=== PATIENT | female | born 1990 | race Caucasian/White ===

== ENCOUNTER 2017-07-13 11:37 | Inpatient (IN) | payer OTHER ==
[2017-07-13] MEDS: DEXTROSE 50% 50 ML SYRINGE IV ×2 (15:24→17:46)
[2017-07-13] MEDS: DEXTROSE 5%-0.9% NACL 1,000 ML IV ×3 (15:25→21:01)
[2017-07-13 15:32] LABS: ADD MAN DIFF? NO
[2017-07-13 15:36] LABS: BASOPHILS % 0.3 % (0.0-2.0); EOSINOPHILS % 0.2 % (0.0-7.0); HEMATOCRIT 32.3 % (37.0-47.0); HEMOGLOBIN 10.5 g/dl (12.0-16.0); LYMPHOCYTES # 1.4 10^3/ul (0.8-2.9); LYMPHOCYTES % 15.5 % (15.0-51.0); MEAN CORPUSCULAR HEMOGLOBIN 29.1 pg (29.0-33.0); MEAN CORPUSCULAR HGB CONC 32.5 g/dl (32.0-37.0); MEAN CORPUSCULAR VOLUME 89.5 fl (82.0-101.0); MEAN PLATELET VOLUME 8.3 fl (7.4-10.4); MONOCYTE # 0.4 10^3/ul (0.3-0.9); MONOCYTES % 4.3 % (0.0-11.0); NEUTROPHIL # 7.1 10^3/ul (1.6-7.5); NEUTROPHILS % 79.5 % (39.0-77.0); PLATELET COUNT 317 10^3/UL (140-415); RED BLOOD COUNT 3.61 10^6/ul (4.20-5.40); RED CELL DISTRIBUTION WIDTH 12.5 % (11.5-14.5)
[2017-07-13 15:36] LABS: WHITE BLOOD COUNT 8.9 10^3/ul (4.8-10.8)
[2017-07-13 15:49] LABS: ANION GAP 18 (8-16); BLOOD UREA NITROGEN 9 mg/dl (7-20); CARBON DIOXIDE 23 mmol/L (21-31); CHLORIDE 106 mmol/L (97-110); CREATININE 0.63 mg/dl (0.44-1.00); POTASSIUM 3.8 mmol/L (3.5-5.1); SODIUM 143 mmol/L (135-144)
[2017-07-13 16:08] LABS: GLUCOSE 36 mg/dl (70-220)
[2017-07-13] MEDS ORDERED: ACETAMINOPHEN 325 MG TAB PO (17:00)
[2017-07-13] MEDS ORDERED: ONDANSETRON 4 MG INJ IV ×2 (17:00)
[2017-07-13 17:49] LABS: MAGNESIUM 2.4 mg/dl (1.7-2.5)
[2017-07-13 17:49] LABS: PHOSPHORUS 3.7 mg/dl (2.5-4.9)
[2017-07-13] MEDS: OCTREOTIDE 100 MCG INJ SC (17:50)
[2017-07-13] MEDS: FAMOTIDINE 20 MG TAB PO (20:13)
[2017-07-13] MEDS: traZODone 50 MG TAB PO (20:23)
[2017-07-14] MEDS: DEXTROSE 5%-0.9% NACL 1,000 ML IV ×3 (00:12→10:00)
[2017-07-14] MEDS: DEXTROSE 50% 50 ML SYRINGE IV ×8 (00:12→12:58)
[2017-07-14 05:18] LABS: WHITE BLOOD COUNT 4.9 10^3/ul (4.8-10.8)
[2017-07-14 05:18] LABS: ADD MAN DIFF? NO; BASOPHILS % 0.4 % (0.0-2.0); EOSINOPHILS # 0.1 10^3/ul (0.0-0.5); HEMOGLOBIN 8.7 g/dl (12.0-16.0); LYMPHOCYTES # 1.7 10^3/ul (0.8-2.9); LYMPHOCYTES % 34.6 % (15.0-51.0); MEAN CORPUSCULAR HEMOGLOBIN 29.3 pg (29.0-33.0); MEAN CORPUSCULAR HGB CONC 32.2 g/dl (32.0-37.0); MEAN CORPUSCULAR VOLUME 90.9 fl (82.0-101.0); MEAN PLATELET VOLUME 8.5 fl (7.4-10.4); MONOCYTE # 0.4 10^3/ul (0.3-0.9); MONOCYTES % 8.6 % (0.0-11.0); NEUTROPHIL # 2.7 10^3/ul (1.6-7.5); NEUTROPHILS % 54.2 % (39.0-77.0); NUCLEATED RED BLOOD CELLS% 0.8 /100WBC (0.0-0.0); PLATELET COUNT 208 10^3/UL (140-415); RED BLOOD COUNT 2.97 10^6/ul (4.20-5.40); RED CELL DISTRIBUTION WIDTH 12.7 % (11.5-14.5)
[2017-07-14 06:21] LABS: PHOSPHORUS 3.7 mg/dl (2.5-4.9)
[2017-07-14 06:21] LABS: MAGNESIUM 1.9 mg/dl (1.7-2.5)
[2017-07-14 06:22] LABS: ALANINE AMINOTRANSFERASE 40 IU/L (13-69); ALBUMIN 3.2 g/dl (3.3-4.9); ALBUMIN/GLOBULIN RATIO 1.33; ALKALINE PHOSPHATASE 47 IU/L (42-121); ANION GAP 9 (8-16); ASPARTATE AMINO TRANSFERASE 20 IU/L (15-46); BILIRUBIN,INDIRECT 0.2 mg/dl (0-1.1); BILIRUBIN,TOTAL 0.2 mg/dl (0.2-1.3); BLOOD UREA NITROGEN 4 mg/dl (7-20); CALCIUM 8.2 mg/dl (8.4-10.2); CARBON DIOXIDE 25 mmol/L (21-31); CHLORIDE 109 mmol/L (97-110); GLUCOSE 137 mg/dl (70-220); POTASSIUM 3.2 mmol/L (3.5-5.1); SODIUM 140 mmol/L (135-144); TOTAL PROTEIN 5.6 g/dl (6.1-8.1)
[2017-07-14] MEDS ORDERED: OCTREOTIDE 100 MCG INJ SC (09:00)
[2017-07-14] MEDS: POTASSIUM CHLORIDE (SR) 20 MEQ TAB PO (09:20)
[2017-07-14] MEDS: NIACIN (SR) 250 MG CAP PO (09:20)
[2017-07-14] MEDS: HYDROCORTISONE 250 MG INJ IV (09:20)
[2017-07-14] MEDS: FAMOTIDINE 20 MG TAB PO (09:21)
[2017-07-14] MEDS: ACETAMINOPHEN 650MG/20.3ML CUP PO (10:01)
[2017-07-14] MEDS: MAGNESIUM SULFATE 1 GM/D5W 100 ML IVPB (10:30)
[2017-07-14] MEDS: OCTREOTIDE 100 MCG INJ SC (14:08)
[2017-07-14] MEDS: [UNRECOGNIZED DRUG - OTHER] IV (16:34)
[2017-07-14] MEDS: D10W IV (16:34)
== END 2017-07-14 19:30 | disposition short-term general hospital (02) | DRG 645 ==
LOC: E/R 11:37 → ICU 16:48
PROVIDERS: Internal Medicine
DX: E16.1 Other hypoglycemia (principal)
CPT/HCPCS: 36415; 80048; 80053; 82962; 83735; 84100; 85025; 96372; 96374; 96376; 99291-25

== ENCOUNTER 2017-10-19 21:12 | Inpatient (IN) | payer OTHER ==
[2017-10-19] MEDS: DEXTROSE 50% 50 ML SYRINGE IV (22:09)
[2017-10-19] MEDS: ACCU-CHEK XX ×2 (22:30→23:30)
[2017-10-19 22:39] LABS: ADD MAN DIFF? NO
[2017-10-19 22:43] LABS: WHITE BLOOD COUNT 7.9 10^3/ul (4.8-10.8)
[2017-10-19 22:43] LABS: BASOPHILS % 0.3 % (0.0-2.0); EOSINOPHILS # 0.1 10^3/ul (0.0-0.5); EOSINOPHILS % 0.6 % (0.0-7.0); HEMOGLOBIN 10.1 g/dl (12.0-16.0); LYMPHOCYTES # 2.4 10^3/ul (0.8-2.9); LYMPHOCYTES % 30.4 % (15.0-51.0); MEAN CORPUSCULAR HEMOGLOBIN 26.3 pg (29.0-33.0); MEAN CORPUSCULAR HGB CONC 31.6 g/dl (32.0-37.0); MEAN CORPUSCULAR VOLUME 83.3 fl (82.0-101.0); MEAN PLATELET VOLUME 9.2 fl (7.4-10.4); MONOCYTE # 0.7 10^3/ul (0.3-0.9); MONOCYTES % 8.5 % (0.0-11.0); NEUTROPHIL # 4.7 10^3/ul (1.6-7.5); NEUTROPHILS % 59.8 % (39.0-77.0); PLATELET COUNT 279 10^3/UL (140-415); RED BLOOD COUNT 3.84 10^6/ul (4.20-5.40); RED CELL DISTRIBUTION WIDTH 15.6 % (11.5-14.5)
[2017-10-19 22:57] LABS: URINE BLOOD (Dip) POC 2+ (NEGATIVE); URINE KETONES (Dip) POC Negative (NEGATIVE); URINE LEUKOCYTE EST (Dip) POC Negative (NEGATIVE); URINE NITRITE (Dip) POC Negative (NEGATIVE); URINE TOTAL PROTEIN POC Negative (NEGATIVE)
[2017-10-19 22:59] LABS: ALANINE AMINOTRANSFERASE 185 IU/L (13-69); ALBUMIN 4.7 g/dl (3.3-4.9); ALBUMIN/GLOBULIN RATIO 1.34; ALKALINE PHOSPHATASE 179 IU/L (42-121); ANION GAP 16 (8-16); ASPARTATE AMINO TRANSFERASE 35 IU/L (15-46); BILIRUBIN,INDIRECT 0.1 mg/dl (0-1.1); BILIRUBIN,TOTAL 0.1 mg/dl (0.2-1.3); BLOOD UREA NITROGEN 9 mg/dl (7-20); CALCIUM 8.9 mg/dl (8.4-10.2); CARBON DIOXIDE 24 mmol/L (21-31); CHLORIDE 104 mmol/L (97-110); CREATININE 0.71 mg/dl (0.44-1.00); POTASSIUM 3.1 mmol/L (3.5-5.1); SODIUM 141 mmol/L (135-144); TOTAL PROTEIN 8.2 g/dl (6.1-8.1)
[2017-10-19 23:02] LABS: INR 0.88; PT RATIO 0.9
[2017-10-19 23:03] LABS: PARTIAL THROMBOPLASTIN TIME 31.8 Sec (25.0-35.0)
[2017-10-19 23:11] LABS: GLUCOSE 21 mg/dl (70-220)
[2017-10-19] MEDS: POTASSIUM CHLORIDE (SR) 20 MEQ TAB PO (23:48)
[2017-10-20] MEDS: ACCU-CHEK XX ×24 (00:30→23:30)
[2017-10-20] MEDS: DEXTROSE 10% 1,000 ML IV ×6 (01:38→19:00)
[2017-10-20] MEDS: DEXTROSE 50% 50 ML SYRINGE IV ×5 (02:07→14:54)
[2017-10-20] MEDS: OCTREOTIDE 50 MCG INJ SC (04:12)
[2017-10-20] MEDS: ONDANSETRON 4 MG INJ IV ×2 (04:12→14:26)
[2017-10-20] MEDS ORDERED: OCTREOTIDE ACETATE IJ (09:00)
[2017-10-20 09:01] LABS: ALANINE AMINOTRANSFERASE 159 IU/L (13-69); ALBUMIN 3.7 g/dl (3.3-4.9); ALBUMIN/GLOBULIN RATIO 1.32; ALKALINE PHOSPHATASE 162 IU/L (42-121); ANION GAP 12 (8-16); ASPARTATE AMINO TRANSFERASE 25 IU/L (15-46); BILIRUBIN,INDIRECT 0.3 mg/dl (0-1.1); BILIRUBIN,TOTAL 0.3 mg/dl (0.2-1.3); BLOOD UREA NITROGEN 4 mg/dl (7-20); CALCIUM 8.8 mg/dl (8.4-10.2); CARBON DIOXIDE 23 mmol/L (21-31); CHLORIDE 109 mmol/L (97-110); CREATININE 0.53 mg/dl (0.44-1.00); GLUCOSE 216 mg/dl (70-220); POTASSIUM 4.4 mmol/L (3.5-5.1); SODIUM 140 mmol/L (135-144); TOTAL PROTEIN 6.5 g/dl (6.1-8.1)
[2017-10-20] MEDS ORDERED: GLUCAGON 1 MG INJ (11:27)
[2017-10-20] MEDS: ACETAMINOPHEN 325 MG TAB PO (13:24)
[2017-10-20] MEDS: NIACIN (SR) 250 MG CAP PO ×2 (13:42→14:00)
[2017-10-20] MEDS: PRENATAL VITAMIN PO (13:42)
[2017-10-20] MEDS ORDERED: DEXTROSE 50% 50 ML SYRINGE (14:10)
[2017-10-20] MEDS: OCTREOTIDE 100 MCG INJ SC (14:24)
[2017-10-20] MEDS ORDERED: GLUCAGON 1 MG INJ IM (14:30)
[2017-10-20] MEDS ORDERED: GLUCOSE GEL 15 GRAM TUBE BUCCAL (14:30)
[2017-10-20] MEDS ORDERED: GLUCOSE GEL 15 GRAM TUBE PO ×2 (14:30)
[2017-10-21] MEDS: DEXTROSE 10% 1,000 ML IV ×5 (00:07→22:09)
[2017-10-21] MEDS: NIACIN (SR) 250 MG CAP PO ×4 (00:13→21:45)
[2017-10-21] MEDS: OCTREOTIDE 100 MCG INJ SC ×4 (00:14→21:45)
[2017-10-21] MEDS: ACCU-CHEK XX ×24 (00:30→23:45)
[2017-10-21] MEDS: ACETAMINOPHEN 325 MG TAB PO ×3 (03:58→21:45)
[2017-10-21] MEDS: ONDANSETRON 4 MG INJ IV ×3 (06:56→21:44)
[2017-10-21] MEDS: METHYLPREDNISOLONE 40 MG INJ IV (08:47)
[2017-10-21] MEDS: PRENATAL VITAMIN PO (10:16)
[2017-10-21] MEDS: PYRIDOXINE 50 MG TAB PO ×2 (14:11→21:45)
[2017-10-21] MEDS: DIPHENHYDRAMINE 50 MG CAP PO (21:45)
[2017-10-22] MEDS: ACCU-CHEK XX ×24 (01:19→23:30)
[2017-10-22] MEDS: DEXTROSE 10% 1,000 ML IV ×3 (03:16→18:44)
[2017-10-22] MEDS: NIACIN (SR) 250 MG CAP PO ×3 (05:36→21:51)
[2017-10-22] MEDS: PYRIDOXINE 50 MG TAB PO ×3 (05:36→21:52)
[2017-10-22] MEDS: OCTREOTIDE 100 MCG INJ SC ×4 (05:36→22:31)
[2017-10-22] MEDS: ONDANSETRON 4 MG INJ IV ×2 (05:39→13:11)
[2017-10-22 07:20] LABS: ALANINE AMINOTRANSFERASE 113 IU/L (13-69); ALBUMIN 4.2 g/dl (3.3-4.9); ALBUMIN/GLOBULIN RATIO 1.31; ALKALINE PHOSPHATASE 147 IU/L (42-121); ANION GAP 16 (8-16); ASPARTATE AMINO TRANSFERASE 24 IU/L (15-46); BILIRUBIN,INDIRECT 0.3 mg/dl (0-1.1); BILIRUBIN,TOTAL 0.3 mg/dl (0.2-1.3); BLOOD UREA NITROGEN 4 mg/dl (7-20); CARBON DIOXIDE 23 mmol/L (21-31); CHLORIDE 105 mmol/L (97-110); CREATININE 0.58 mg/dl (0.44-1.00); GLUCOSE 130 mg/dl (70-220); POTASSIUM 3.2 mmol/L (3.5-5.1); SODIUM 141 mmol/L (135-144); TOTAL PROTEIN 7.4 g/dl (6.1-8.1)
[2017-10-22] MEDS: PRENATAL VITAMIN PO (08:34)
[2017-10-22] MEDS: POTASSIUM CHLORIDE (SR) 20 MEQ TAB PO (10:11)
[2017-10-22] MEDS: predniSONE 20 MG TAB PO (10:11)
[2017-10-22] MEDS: DEXTROSE 50% 50 ML SYRINGE IV ×4 (11:37→22:28)
[2017-10-22] MEDS: DIPHENHYDRAMINE 50 MG CAP PO (21:52)
[2017-10-23] MEDS: ACCU-CHEK XX ×24 (00:50→23:49)
[2017-10-23] MEDS: DEXTROSE 10% 1,000 ML IV ×3 (02:31→21:53)
[2017-10-23] MEDS: NIACIN (SR) 250 MG CAP PO ×3 (05:42→23:51)
[2017-10-23] MEDS: OCTREOTIDE 100 MCG INJ SC ×3 (05:42→18:32)
[2017-10-23] MEDS: PYRIDOXINE 50 MG TAB PO ×3 (05:42→22:00)
[2017-10-23 06:17] LABS: ALANINE AMINOTRANSFERASE 143 IU/L (13-69); ALBUMIN 3.8 g/dl (3.3-4.9); ALBUMIN/GLOBULIN RATIO 1.35; ALKALINE PHOSPHATASE 135 IU/L (42-121); ANION GAP 10 (8-16); ASPARTATE AMINO TRANSFERASE 45 IU/L (15-46); BILIRUBIN,INDIRECT 0.4 mg/dl (0-1.1); BILIRUBIN,TOTAL 0.4 mg/dl (0.2-1.3); BLOOD UREA NITROGEN 5 mg/dl (7-20); CALCIUM 9.3 mg/dl (8.4-10.2); CARBON DIOXIDE 27 mmol/L (21-31); CHLORIDE 106 mmol/L (97-110); CREATININE 0.64 mg/dl (0.44-1.00); GLUCOSE 133 mg/dl (70-220); POTASSIUM 4.1 mmol/L (3.5-5.1); SODIUM 139 mmol/L (135-144); TOTAL PROTEIN 6.6 g/dl (6.1-8.1)
[2017-10-23] MEDS: PRENATAL VITAMIN PO (08:43)
[2017-10-23] MEDS: ONDANSETRON 4 MG INJ IV ×2 (11:45→18:32)
[2017-10-23] MEDS: predniSONE 5 MG TAB PO ×2 (14:36→23:51)
[2017-10-23 15:18] LABS: C-PEPTIDE 2.82 ng/mL (0.80-3.85)
[2017-10-23] MEDS: DIPHENHYDRAMINE 50 MG CAP PO (21:34)
[2017-10-24] MEDS: ACCU-CHEK XX ×24 (01:07→23:56)
[2017-10-24] MEDS: OCTREOTIDE 100 MCG INJ SC ×3 (01:07→12:00)
[2017-10-24] MEDS: ONDANSETRON 4 MG INJ IV (01:21)
[2017-10-24] MEDS: DEXTROSE 10% 1,000 ML IV ×3 (02:25→17:40)
[2017-10-24 05:47] LABS: MAGNESIUM 1.8 mg/dl (1.7-2.5)
[2017-10-24 05:50] LABS: ALANINE AMINOTRANSFERASE 128 IU/L (13-69); ALBUMIN 3.9 g/dl (3.3-4.9); ALBUMIN/GLOBULIN RATIO 1.25; ALKALINE PHOSPHATASE 132 IU/L (42-121); ANION GAP 14 (8-16); ASPARTATE AMINO TRANSFERASE 36 IU/L (15-46); BILIRUBIN,INDIRECT 0.5 mg/dl (0-1.1); BILIRUBIN,TOTAL 0.5 mg/dl (0.2-1.3); BLOOD UREA NITROGEN 6 mg/dl (7-20); CALCIUM 8.8 mg/dl (8.4-10.2); CARBON DIOXIDE 24 mmol/L (21-31); CHLORIDE 103 mmol/L (97-110); GLUCOSE 167 mg/dl (70-220); POTASSIUM 3.6 mmol/L (3.5-5.1); SODIUM 137 mmol/L (135-144)
[2017-10-24] MEDS: predniSONE 5 MG TAB PO ×3 (05:53→21:45)
[2017-10-24] MEDS: NIACIN (SR) 250 MG CAP PO ×3 (05:53→21:45)
[2017-10-24] MEDS: PYRIDOXINE 50 MG TAB PO ×3 (05:53→21:45)
[2017-10-24] MEDS: PRENATAL VITAMIN PO (08:24)
[2017-10-24] MEDS: ACETAMINOPHEN 325 MG TAB PO ×2 (14:57→21:52)
[2017-10-24] MEDS: ACARBOSE 50 MG TAB PO (16:40)
[2017-10-24] MEDS: DIPHENHYDRAMINE 50 MG CAP PO (21:45)
[2017-10-24] MEDS: DEXTROSE 50% 50 ML SYRINGE IV (22:50)
[2017-10-25] MEDS: ACCU-CHEK XX ×24 (00:57→23:50)
[2017-10-25 05:48] LABS: PHOSPHORUS 4.5 mg/dl (2.5-4.9)
[2017-10-25 05:53] LABS: ANION GAP 17 (8-16); BLOOD UREA NITROGEN 7 mg/dl (7-20); CARBON DIOXIDE 22 mmol/L (21-31); CHLORIDE 103 mmol/L (97-110); CREATININE 0.63 mg/dl (0.44-1.00); GLUCOSE 80 mg/dl (70-220); POTASSIUM 3.7 mmol/L (3.5-5.1); SODIUM 138 mmol/L (135-144)
[2017-10-25] MEDS: predniSONE 5 MG TAB PO ×3 (06:47→21:37)
[2017-10-25] MEDS: NIACIN (SR) 250 MG CAP PO ×3 (06:47→21:37)
[2017-10-25] MEDS: PYRIDOXINE 50 MG TAB PO ×3 (06:47→21:37)
[2017-10-25] MEDS: ACARBOSE 50 MG TAB PO ×3 (07:53→18:20)
[2017-10-25] MEDS: PRENATAL VITAMIN PO (08:16)
[2017-10-25] MEDS: DEXTROSE 10% 1,000 ML IV ×2 (08:34→13:53)
[2017-10-25] MEDS: DEXTROSE 50% 50 ML SYRINGE IV (14:38)
[2017-10-25] MEDS: DIPHENHYDRAMINE 50 MG CAP PO (21:37)
[2017-10-25] MEDS: OCTREOTIDE 100 MCG INJ SC (21:40)
[2017-10-26] MEDS: ACCU-CHEK XX ×16 (00:46→15:00)
[2017-10-26] MEDS: DEXTROSE 10% 1,000 ML IV (01:09)
[2017-10-26] MEDS: SOD CHLORIDE 0.9% 500 ML IV (03:27)
[2017-10-26] MEDS: OCTREOTIDE 100 MCG INJ SC ×3 (05:00→15:28)
[2017-10-26] MEDS: NIACIN (SR) 250 MG CAP PO ×2 (05:32→14:44)
[2017-10-26] MEDS: predniSONE 5 MG TAB PO ×2 (05:32→14:22)
[2017-10-26] MEDS: PYRIDOXINE 50 MG TAB PO ×2 (05:32→14:23)
[2017-10-26 05:37] LABS: ANION GAP 16 (8-16); BLOOD UREA NITROGEN 12 mg/dl (7-20); CALCIUM 8.2 mg/dl (8.4-10.2); CARBON DIOXIDE 21 mmol/L (21-31); CHLORIDE 103 mmol/L (97-110); CREATININE 0.76 mg/dl (0.44-1.00); GLUCOSE 104 mg/dl (70-220); POTASSIUM 3.4 mmol/L (3.5-5.1); SODIUM 137 mmol/L (135-144)
[2017-10-26 05:38] LABS: MAGNESIUM 1.9 mg/dl (1.7-2.5)
[2017-10-26] MEDS: ACARBOSE 50 MG TAB PO ×2 (06:42→11:18)
[2017-10-26] MEDS: PRENATAL VITAMIN PO (09:44)
[2017-10-26] MEDS: POTASSIUM CHLORIDE (SR) 20 MEQ TAB PO (09:44)
[2017-10-26] MEDS: ONDANSETRON 4 MG INJ IV (09:55)
[2017-10-26] MEDS ORDERED: POTASSIUM CHLORIDE (SR) 20 MEQ TAB PO (11:14)
== END 2017-10-26 15:32 | disposition home or self-care (01) | DRG 781 ==
LOC: ICU 10-20 02:05 → E/R 21:12
PROVIDERS: Hospitalist
DX: O99.281 Endocrine, nutritional and metabolic diseases complicating pregnancy, first trimester (principal); E16.1 Other hypoglycemia; E87.6 Hypokalemia; Z3A.01 Less than 8 weeks gestation of pregnancy; D37.2 Neoplasm of uncertain behavior of small intestine
CPT/HCPCS: 36415; 76801; 76817; 80048; 80053; 81003; 81025; 82962; 83525; 83735; 84100; 84681; 85025; 85610; 85730; 87081; 93005; 96372; 96374; 96375; 96376; 99291-25

== ENCOUNTER 2017-12-07 20:27 | Emergency (ER) | payer OTHER ==
[2017-12-07] MEDS ORDERED: DEXTROSE 50% 50 ML SYRINGE (21:38)
[2017-12-07] MEDS: DEXTROSE 50% 50 ML SYRINGE IV (21:53)
[2017-12-07] MEDS: ACCU-CHEK XX (22:34)
[2017-12-07] MEDS: DEXTROSE 10% 1,000 ML IV (22:35)
[2017-12-07 22:38] LABS: ADD MAN DIFF? NO
[2017-12-07 22:40] LABS: BASOPHILS % 0.2 % (0.0-2.0); EOSINOPHILS # 0.1 10^3/ul (0.0-0.5); EOSINOPHILS % 0.9 % (0.0-7.0); HEMATOCRIT 36.5 % (37.0-47.0); LYMPHOCYTES # 2.3 10^3/ul (0.8-2.9); LYMPHOCYTES % 21.3 % (15.0-51.0); MEAN CORPUSCULAR HEMOGLOBIN 29.1 pg (29.0-33.0); MEAN CORPUSCULAR HGB CONC 32.9 g/dl (32.0-37.0); MEAN CORPUSCULAR VOLUME 88.4 fl (82.0-101.0); MEAN PLATELET VOLUME 9.7 fl (7.4-10.4); MONOCYTE # 0.8 10^3/ul (0.3-0.9); MONOCYTES % 7.5 % (0.0-11.0); NEUTROPHIL # 7.6 10^3/ul (1.6-7.5); NEUTROPHILS % 69.7 % (39.0-77.0); PLATELET COUNT 195 10^3/UL (140-415); RED BLOOD COUNT 4.13 10^6/ul (4.20-5.40); RED CELL DISTRIBUTION WIDTH 17.3 % (11.5-14.5); URINE BLOOD (Dip) POC Negative (NEGATIVE); URINE GLUCOSE (Dip) POC Negative (NEGATIVE); URINE KETONES (Dip) POC Negative (NEGATIVE); URINE LEUKOCYTE EST (Dip) POC Trace (NEGATIVE); URINE NITRITE (Dip) POC Negative (NEGATIVE); URINE TOTAL PROTEIN POC Negative (NEGATIVE)
[2017-12-07 22:40] LABS: WHITE BLOOD COUNT 10.9 10^3/ul (4.8-10.8)
[2017-12-07 22:46] LABS: ANION GAP 15 (8-16); BLOOD UREA NITROGEN 9 mg/dl (7-20); CALCIUM 9.1 mg/dl (8.4-10.2); CARBON DIOXIDE 20 mmol/L (21-31); CHLORIDE 108 mmol/L (97-110); MAGNESIUM 1.9 mg/dl (1.7-2.5); SODIUM 140 mmol/L (135-144)
[2017-12-07 22:51] LABS: GLUCOSE 35 mg/dl (70-220); POTASSIUM 2.9 mmol/L (3.5-5.1)
[2017-12-08] MEDS: ACCU-CHEK XX ×10 (00:17→08:14)
[2017-12-08] MEDS: POTASSIUM CHLORIDE (SR) 20 MEQ TAB PO (00:17)
[2017-12-08] MEDS: DEXTROSE 50% 50 ML SYRINGE IV ×4 (02:27→07:03)
== END 2017-12-08 08:40 | disposition short-term general hospital (02) ==
LOC: E/R 12-08 08:40
DX: O99.810 Abnormal glucose complicating pregnancy (principal); O99.281 Endocrine, nutritional and metabolic diseases complicating pregnancy, first trimester; E87.6 Hypokalemia; E16.2 Hypoglycemia, unspecified; Z3A.12 12 weeks gestation of pregnancy
CPT/HCPCS: 76801; 80048; 81003; 81025; 82962; 83735; 85025; 96374; 96376; 99291-25

== ENCOUNTER 2018-08-28 17:04 | Inpatient (IN) | payer OTHER ==
[2018-08-28 18:10] LABS: ADD MAN DIFF? NO
[2018-08-28 18:13] LABS: WHITE BLOOD COUNT 8.9 10^3/ul (4.8-10.8)
[2018-08-28 18:13] LABS: BASOPHILS % 0.2 % (0.0-2.0); EOSINOPHILS % 0.1 % (0.0-7.0); HEMATOCRIT 35.1 % (37.0-47.0); HEMOGLOBIN 11.8 g/dl (12.0-16.0); LYMPHOCYTES # 1.6 10^3/ul (0.8-2.9); MEAN CORPUSCULAR HGB CONC 33.6 g/dl (32.0-37.0); MEAN CORPUSCULAR VOLUME 92.1 fl (82.0-101.0); MONOCYTE # 0.6 10^3/ul (0.3-0.9); MONOCYTES % 6.3 % (0.0-11.0); NEUTROPHIL # 6.7 10^3/ul (1.6-7.5); NEUTROPHILS % 75.2 % (39.0-77.0); PLATELET COUNT 209 10^3/UL (140-415); RED BLOOD COUNT 3.81 10^6/ul (4.20-5.40); RED CELL DISTRIBUTION WIDTH 11.9 % (11.5-14.5)
[2018-08-28 18:30] LABS: ALANINE AMINOTRANSFERASE 38 IU/L (13-69); ALBUMIN 4.7 g/dl (3.3-4.9); ALBUMIN/GLOBULIN RATIO 1.56; ALKALINE PHOSPHATASE 69 IU/L (42-121); ANION GAP 13 (5-13); ASPARTATE AMINO TRANSFERASE 29 IU/L (15-46); BILIRUBIN,INDIRECT 0.7 mg/dl (0-1.1); BILIRUBIN,TOTAL 0.7 mg/dl (0.2-1.3); BLOOD UREA NITROGEN 6 mg/dl (7-20); CALCIUM 9.3 mg/dl (8.4-10.2); CARBON DIOXIDE 23 mmol/L (21-31); CHLORIDE 107 mmol/L (97-110); CREATININE 0.58 mg/dl (0.44-1.00); Estimated GFR > 60 mL/min (>60); LIPASE 213 U/L (23-300); POTASSIUM 3.6 mmol/L (3.5-5.1); SODIUM 143 mmol/L (135-144); TOTAL PROTEIN 7.7 g/dl (6.1-8.1)
[2018-08-28] MEDS: DEXTROSE 50% 50 ML SYRINGE IV ×3 (18:30→22:45)
[2018-08-28 18:36] LABS: GLUCOSE 44 mg/dl (70-220)
[2018-08-28 19:02] LABS: URINE BLOOD (Dip) POC Trace-intact (NEGATIVE); URINE GLUCOSE (Dip) POC Negative (NEGATIVE); URINE KETONES (Dip) POC Negative (NEGATIVE); URINE LEUKOCYTE EST (Dip) POC Negative (NEGATIVE); URINE NITRITE (Dip) POC Negative (NEGATIVE); URINE TOTAL PROTEIN POC Negative (NEGATIVE)
[2018-08-28] MEDS: DEXTROSE 10% 1,000 ML IV (20:12)
[2018-08-28] MEDS ORDERED: NACL 0.9% 3 ML SYG IV (21:30)
[2018-08-28] MEDS ORDERED: DOCUSATE SODIUM 100 MG CAP PO (21:30)
[2018-08-28] MEDS: POTASSIUM CHLORIDE 20 MEQ in DEXTROSE 10%/0.2% NACL 1,000 ML IV (22:31)
[2018-08-28] MEDS ORDERED: OCTREOTIDE 50 MCG INJ SC (22:40)
[2018-08-28] MEDS: FAMOTIDINE 20 MG TAB PO (23:15)
[2018-08-28] MEDS: OCTREOTIDE 100 MCG INJ SC (23:30)
[2018-08-29] MEDS: ACETAMINOPHEN 325 MG TAB PO ×2 (00:32→17:53)
[2018-08-29] MEDS: DEXTROSE 50% 50 ML SYRINGE IV ×15 (00:34→18:52)
[2018-08-29] MEDS: ACCU-CHEK XX ×23 (01:07→23:00)
[2018-08-29] MEDS: POTASSIUM CHLORIDE 20 MEQ in DEXTROSE 10%/0.2% NACL 1,000 ML IV ×4 (04:44→23:30)
[2018-08-29 05:32] LABS: ADD MAN DIFF? NO
[2018-08-29] MEDS: OCTREOTIDE 100 MCG INJ SC ×5 (05:40→23:31)
[2018-08-29 05:41] LABS: WHITE BLOOD COUNT 4.7 10^3/ul (4.8-10.8)
[2018-08-29 05:41] LABS: BASOPHILS % 0.2 % (0.0-2.0); EOSINOPHILS # 0.1 10^3/ul (0.0-0.5); EOSINOPHILS % 1.3 % (0.0-7.0); HEMOGLOBIN 10.6 g/dl (12.0-16.0); LYMPHOCYTES # 1.9 10^3/ul (0.8-2.9); LYMPHOCYTES % 40.9 % (15.0-51.0); MEAN CORPUSCULAR HEMOGLOBIN 30.6 pg (29.0-33.0); MEAN CORPUSCULAR HGB CONC 33.1 g/dl (32.0-37.0); MEAN CORPUSCULAR VOLUME 92.5 fl (82.0-101.0); MEAN PLATELET VOLUME 9.2 fl (7.4-10.4); MONOCYTE # 0.4 10^3/ul (0.3-0.9); NEUTROPHIL # 2.3 10^3/ul (1.6-7.5); NEUTROPHILS % 49.4 % (39.0-77.0); PLATELET COUNT 175 10^3/UL (140-415); RED BLOOD COUNT 3.46 10^6/ul (4.20-5.40)
[2018-08-29 05:56] LABS: ANION GAP 9 (5-13); BLOOD UREA NITROGEN 3 mg/dl (7-20); CALCIUM 8.9 mg/dl (8.4-10.2); CARBON DIOXIDE 22 mmol/L (21-31); CHLORIDE 107 mmol/L (97-110); CREATININE 0.52 mg/dl (0.44-1.00); Estimated GFR > 60 mL/min (>60); GLUCOSE 127 mg/dl (70-220); POTASSIUM 3.5 mmol/L (3.5-5.1); SODIUM 138 mmol/L (135-144)
[2018-08-29 06:23] LABS: HEMOGLOBIN A1C 4.7 % (0-5.9)
[2018-08-29 06:25] LABS: THYROID STIMULATING HORMONE 0.832 MIU/L (0.465-4.680)
[2018-08-29] MEDS: FAMOTIDINE 20 MG TAB PO ×2 (08:56→20:31)
[2018-08-29] MEDS: ENOXAPARIN 40 MG/0.4 ML SYG SC (08:57)
[2018-08-29] MEDS: HYDROCORTISONE 100 MG INJ IV (17:07)
[2018-08-29] MEDS: NIACIN 500 MG TAB PO (17:08)
[2018-08-30] MEDS: ACCU-CHEK XX ×26 (00:23→23:56)
[2018-08-30] MEDS: POTASSIUM CHLORIDE 20 MEQ in DEXTROSE 10%/0.2% NACL 1,000 ML IV ×2 (06:16→14:51)
[2018-08-30] MEDS: OCTREOTIDE 100 MCG INJ SC ×4 (06:16→23:23)
[2018-08-30] MEDS: DEXTROSE 50% 50 ML SYRINGE IV ×5 (06:57→16:36)
[2018-08-30] MEDS: FAMOTIDINE 20 MG TAB PO ×2 (08:54→20:11)
[2018-08-30] MEDS: ENOXAPARIN 40 MG/0.4 ML SYG SC (08:55)
[2018-08-30] MEDS: HYDROCORTISONE 100 MG INJ IV (14:34)
[2018-08-30] MEDS: ONDANSETRON 4 MG TAB PO (14:50)
[2018-08-30 15:41] LABS: GLUCOSE 142 mg/dl (70-220)
[2018-08-30] MEDS: ACETAMINOPHEN 325 MG TAB PO (20:11)
[2018-08-31] MEDS: ACCU-CHEK XX ×22 (02:16→23:00)
[2018-08-31] MEDS: OCTREOTIDE 100 MCG INJ SC ×3 (05:40→21:04)
[2018-08-31] MEDS: POTASSIUM CHLORIDE 20 MEQ in DEXTROSE 10%/0.2% NACL 1,000 ML IV ×2 (05:40→22:01)
[2018-08-31] MEDS: FAMOTIDINE 20 MG TAB PO ×2 (08:02→20:26)
[2018-08-31] MEDS: ENOXAPARIN 40 MG/0.4 ML SYG SC (08:04)
[2018-08-31] MEDS: ONDANSETRON 4 MG INJ IV ×2 (14:26→20:26)
[2018-08-31] MEDS: DEXTROSE 50% 50 ML SYRINGE IV ×2 (14:26→20:34)
[2018-08-31 15:06] LABS: C-PEPTIDE 9.35 ng/mL (0.80-3.85)
[2018-08-31] MEDS: HYDROCORTISONE 100 MG INJ IV (18:41)
[2018-09-01] MEDS: ACCU-CHEK XX ×13 (00:21→12:08)
[2018-09-01] MEDS: OCTREOTIDE 100 MCG INJ SC (05:47)
[2018-09-01] MEDS: FAMOTIDINE 20 MG TAB PO (09:14)
[2018-09-01] MEDS: ENOXAPARIN 40 MG/0.4 ML SYG SC (09:17)
[2018-09-05 17:11] LABS: INSULIN AUTOANTIBODY <0.4 U/mL (<0.4)
== END 2018-09-01 12:00 | disposition home or self-care (01) | DRG 376 ==
LOC: ICU 21:36 → E/R 17:04 → ICU 08-29 09:17
PROVIDERS: Internal Medicine
DX: D37.8 Neoplasm of uncertain behavior of other specified digestive organs (principal); E16.1 Other hypoglycemia
CPT/HCPCS: 80048; 80053; 81003; 81025; 82947; 82962; 83036; 83690; 84443; 84681; 85025; 86337; 87081; 96374; 96376; 99285-25

== ENCOUNTER 2018-12-12 20:02 | Inpatient (IN) | payer OTHER ==
[2018-12-12 21:32] LABS: ADD MAN DIFF? NO
[2018-12-12 21:33] LABS: BASOPHILS % 0.4 % (0.0-2.0); EOSINOPHILS % 0.3 % (0.0-7.0); HEMATOCRIT 33.1 % (37.0-47.0); HEMOGLOBIN 10.9 g/dl (12.0-16.0); LYMPHOCYTES # 1.2 10^3/ul (0.8-2.9); LYMPHOCYTES % 17.4 % (15.0-51.0); MEAN CORPUSCULAR HEMOGLOBIN 27.4 pg (29.0-33.0); MEAN CORPUSCULAR HGB CONC 32.9 g/dl (32.0-37.0); MEAN CORPUSCULAR VOLUME 83.2 fl (82.0-101.0); MEAN PLATELET VOLUME 9.1 fl (7.4-10.4); MONOCYTE # 0.4 10^3/ul (0.3-0.9); NEUTROPHIL # 5.4 10^3/ul (1.6-7.5); NEUTROPHILS % 76.8 % (39.0-77.0); PLATELET COUNT 212 10^3/UL (140-415); RED BLOOD COUNT 3.98 10^6/ul (4.20-5.40); RED CELL DISTRIBUTION WIDTH 12.3 % (11.5-14.5)
[2018-12-12] MEDS: DEXTROSE 5%-0.9% NACL 1,000 ML IV (21:36)
[2018-12-12] MEDS: METHYLPREDNISOLONE 125 MG INJ IV (21:37)
[2018-12-12 21:58] LABS: ANION GAP 12 (5-13); BLOOD UREA NITROGEN 8 mg/dl (7-20); CARBON DIOXIDE 23 mmol/L (21-31); CHLORIDE 106 mmol/L (97-110); CREATININE 0.62 mg/dl (0.44-1.00); Estimated GFR > 60 mL/min (>60); POTASSIUM 3.5 mmol/L (3.5-5.1); SODIUM 141 mmol/L (135-144)
[2018-12-12 22:05] LABS: GLUCOSE 41 mg/dl (70-220)
[2018-12-12] MEDS ORDERED: DEXTROSE 10% 1,000 ML IV (23:30)
[2018-12-12] MEDS ORDERED: ONDANSETRON 4 MG INJ IV (23:30)
[2018-12-12] MEDS ORDERED: ACETAMINOPHEN 650MG/20.3ML CUP PO (23:30)
[2018-12-12] MEDS ORDERED: BISACODYL (EC) 5 MG TAB PO (23:30)
[2018-12-12] MEDS ORDERED: DOCUSATE SODIUM 100 MG CAP PO (23:30)
[2018-12-12] MEDS: DEXTROSE 10%/0.45% NACL 1,000 ML IV (23:51)
[2018-12-13] MEDS: FAMOTIDINE 20 MG TAB PO ×3 (00:43→21:49)
[2018-12-13] MEDS: DEXTROSE 50% 50 ML SYRINGE IV ×4 (00:43→21:57)
[2018-12-13] MEDS: METHYLPREDNISOLONE 40 MG INJ IV ×4 (00:44→21:50)
[2018-12-13] MEDS ORDERED: GLUCOSE GEL 15 GRAM TUBE BUCCAL (01:00)
[2018-12-13] MEDS ORDERED: GLUCAGON 1 MG INJ IM (01:00)
[2018-12-13] MEDS ORDERED: DEXTROSE 50% 50 ML SYRINGE IV (01:00)
[2018-12-13] MEDS ORDERED: GLUCOSE GEL 15 GRAM TUBE PO ×2 (01:00)
[2018-12-13] MEDS: KETOROLAC 15 MG INJ IV (01:29)
[2018-12-13] MEDS: morphine 2 MG INJ IV ×4 (02:22→21:49)
[2018-12-13] MEDS: HYDROCODONE/APAP (5/325) TAB PO ×3 (04:09→18:46)
[2018-12-13] MEDS: OCTREOTIDE 100 MCG INJ SC (06:39)
[2018-12-13] MEDS: ONDANSETRON 4 MG INJ IV (06:39)
[2018-12-13] MEDS: SOD CHLORIDE 0.9% 500 ML IV (06:40)
[2018-12-13 07:03] LABS: ADD MAN DIFF? NO
[2018-12-13 07:08] LABS: HEMATOCRIT 32.9 % (37.0-47.0); LYMPHOCYTES # 0.7 10^3/ul (0.8-2.9); LYMPHOCYTES % 14.8 % (15.0-51.0); MEAN CORPUSCULAR HEMOGLOBIN 27.2 pg (29.0-33.0); MEAN CORPUSCULAR HGB CONC 33.4 g/dl (32.0-37.0); MEAN CORPUSCULAR VOLUME 81.4 fl (82.0-101.0); MEAN PLATELET VOLUME 9.2 fl (7.4-10.4); MONOCYTE # 0.1 10^3/ul (0.3-0.9); MONOCYTES % 1.1 % (0.0-11.0); NEUTROPHIL # 3.9 10^3/ul (1.6-7.5); NEUTROPHILS % 83.9 % (39.0-77.0); PLATELET COUNT 206 10^3/UL (140-415); RED BLOOD COUNT 4.04 10^6/ul (4.20-5.40); RED CELL DISTRIBUTION WIDTH 12.5 % (11.5-14.5)
[2018-12-13 07:08] LABS: WHITE BLOOD COUNT 4.6 10^3/ul (4.8-10.8)
[2018-12-13 07:32] LABS: CHOLESTEROL 142 mg/dl (100-200)
[2018-12-13 07:32] LABS: ALANINE AMINOTRANSFERASE 164 IU/L (13-69); ALBUMIN 4.6 g/dl (3.3-4.9); ALBUMIN/GLOBULIN RATIO 1.53; ALKALINE PHOSPHATASE 74 IU/L (42-121); ANION GAP 11 (5-13); ASPARTATE AMINO TRANSFERASE 95 IU/L (15-46); BILIRUBIN,INDIRECT 0.7 mg/dl (0-1.1); BILIRUBIN,TOTAL 0.7 mg/dl (0.2-1.3); BLOOD UREA NITROGEN 6 mg/dl (7-20); CARBON DIOXIDE 26 mmol/L (21-31); CHLORIDE 104 mmol/L (97-110); CHOL/HDL RATIO 2.4 RATIO; CREATININE 0.58 mg/dl (0.44-1.00); Estimated GFR > 60 mL/min (>60); GLUCOSE 58 mg/dl (70-220); HDL CHOLESTEROL 58 mg/dl (34-82); LDL CHOLESTEROL,CALCULATED 80 mg/dl; POTASSIUM 4.4 mmol/L (3.5-5.1); SODIUM 141 mmol/L (135-144); TOTAL PROTEIN 7.6 g/dl (6.1-8.1); TRIGLYCERIDES 20 mg/dl (0-149)
[2018-12-13] MEDS ORDERED: FAMOTIDINE 20 MG TAB PO (09:00)
[2018-12-13] MEDS: DEXTROSE 10%/0.45% NACL 1,000 ML IV ×2 (11:39→19:42)
[2018-12-14] MEDS: DEXTROSE 50% 50 ML SYRINGE IV ×2 (00:07→17:30)
[2018-12-14] MEDS: HYDROCODONE/APAP (5/325) TAB PO ×3 (00:51→19:57)
[2018-12-14] MEDS: DEXTROSE 10%/0.45% NACL 1,000 ML IV ×5 (00:55→23:31)
[2018-12-14] MEDS: OCTREOTIDE 100 MCG INJ SC ×2 (02:06→21:24)
[2018-12-14] MEDS: ONDANSETRON 4 MG INJ IV ×2 (02:06→21:23)
[2018-12-14] MEDS: morphine 2 MG INJ IV ×5 (02:06→22:09)
[2018-12-14 05:39] LABS: ADD MAN DIFF? NO
[2018-12-14 05:44] LABS: WHITE BLOOD COUNT 11.3 10^3/ul (4.8-10.8)
[2018-12-14 05:44] LABS: BASOPHILS % 0.1 % (0.0-2.0); HEMATOCRIT 28.8 % (37.0-47.0); HEMOGLOBIN 9.6 g/dl (12.0-16.0); LYMPHOCYTES # 1.1 10^3/ul (0.8-2.9); LYMPHOCYTES % 9.8 % (15.0-51.0); MEAN CORPUSCULAR HEMOGLOBIN 27.7 pg (29.0-33.0); MEAN CORPUSCULAR HGB CONC 33.3 g/dl (32.0-37.0); MEAN PLATELET VOLUME 9.7 fl (7.4-10.4); MONOCYTE # 0.4 10^3/ul (0.3-0.9); MONOCYTES % 3.5 % (0.0-11.0); NEUTROPHIL # 9.8 10^3/ul (1.6-7.5); NEUTROPHILS % 86.3 % (39.0-77.0); PLATELET COUNT 207 10^3/UL (140-415); RED BLOOD COUNT 3.47 10^6/ul (4.20-5.40); RED CELL DISTRIBUTION WIDTH 12.6 % (11.5-14.5)
[2018-12-14 06:17] LABS: ALANINE AMINOTRANSFERASE 115 IU/L (13-69); ALBUMIN 3.6 g/dl (3.3-4.9); ALBUMIN/GLOBULIN RATIO 1.44; ALKALINE PHOSPHATASE 55 IU/L (42-121); ANION GAP 9 (5-13); ASPARTATE AMINO TRANSFERASE 55 IU/L (15-46); BILIRUBIN,INDIRECT 0.5 mg/dl (0-1.1); BILIRUBIN,TOTAL 0.5 mg/dl (0.2-1.3); BLOOD UREA NITROGEN 7 mg/dl (7-20); CALCIUM 8.4 mg/dl (8.4-10.2); CARBON DIOXIDE 26 mmol/L (21-31); CHLORIDE 107 mmol/L (97-110); CHOL/HDL RATIO 2.3 RATIO; CHOLESTEROL 104 mg/dl (100-200); CREATININE 0.54 mg/dl (0.44-1.00); Estimated GFR > 60 mL/min (>60); GLUCOSE 100 mg/dl (70-220); HDL CHOLESTEROL 45 mg/dl (34-82); LDL CHOLESTEROL,CALCULATED 55 mg/dl; POTASSIUM 3.8 mmol/L (3.5-5.1); SODIUM 142 mmol/L (135-144); TOTAL PROTEIN 6.1 g/dl (6.1-8.1); TRIGLYCERIDES 21 mg/dl (0-149)
[2018-12-14] MEDS: METHYLPREDNISOLONE 40 MG INJ IV ×3 (06:23→21:23)
[2018-12-14 06:45] LABS: THYROID STIMULATING HORMONE 0.106 MIU/L (0.465-4.680)
[2018-12-14] MEDS: FAMOTIDINE 20 MG TAB PO ×2 (10:00→21:23)
[2018-12-14] MEDS: METOCLOPRAMIDE 10 MG INJ IV (22:09)
[2018-12-15] MEDS: DEXTROSE 10%/0.45% NACL 1,000 ML IV ×2 (03:36→09:38)
[2018-12-15 04:57] LABS: ADD MAN DIFF? NO
[2018-12-15 05:07] LABS: BASOPHILS % 0.1 % (0.0-2.0); HEMATOCRIT 31.2 % (37.0-47.0); HEMOGLOBIN 10.2 g/dl (12.0-16.0); LYMPHOCYTES # 1.3 10^3/ul (0.8-2.9); MEAN CORPUSCULAR HEMOGLOBIN 27.4 pg (29.0-33.0); MEAN CORPUSCULAR HGB CONC 32.7 g/dl (32.0-37.0); MEAN CORPUSCULAR VOLUME 83.9 fl (82.0-101.0); MEAN PLATELET VOLUME 9.7 fl (7.4-10.4); MONOCYTE # 0.4 10^3/ul (0.3-0.9); MONOCYTES % 3.8 % (0.0-11.0); NEUTROPHIL # 8.8 10^3/ul (1.6-7.5); NEUTROPHILS % 83.8 % (39.0-77.0); PLATELET COUNT 223 10^3/UL (140-415); RED BLOOD COUNT 3.72 10^6/ul (4.20-5.40); RED CELL DISTRIBUTION WIDTH 12.7 % (11.5-14.5)
[2018-12-15 05:07] LABS: WHITE BLOOD COUNT 10.5 10^3/ul (4.8-10.8)
[2018-12-15 05:30] LABS: ALANINE AMINOTRANSFERASE 114 IU/L (13-69); ALBUMIN 3.7 g/dl (3.3-4.9); ALBUMIN/GLOBULIN RATIO 1.32; ALKALINE PHOSPHATASE 68 IU/L (42-121); ANION GAP 8 (5-13); ASPARTATE AMINO TRANSFERASE 38 IU/L (15-46); BILIRUBIN,INDIRECT 0.4 mg/dl (0-1.1); BILIRUBIN,TOTAL 0.4 mg/dl (0.2-1.3); BLOOD UREA NITROGEN 8 mg/dl (7-20); CALCIUM 8.8 mg/dl (8.4-10.2); CARBON DIOXIDE 26 mmol/L (21-31); CHLORIDE 105 mmol/L (97-110); CREATININE 0.68 mg/dl (0.44-1.00); Estimated GFR > 60 mL/min (>60); GLUCOSE 220 mg/dl (70-220); POTASSIUM 3.8 mmol/L (3.5-5.1); SODIUM 139 mmol/L (135-144); TOTAL PROTEIN 6.5 g/dl (6.1-8.1)
[2018-12-15] MEDS: morphine 2 MG INJ IV ×3 (06:28→23:10)
[2018-12-15] MEDS: OCTREOTIDE 100 MCG INJ SC ×3 (06:28→23:00)
[2018-12-15] MEDS: METHYLPREDNISOLONE 40 MG INJ IV ×3 (06:28→21:10)
[2018-12-15] MEDS: ONDANSETRON 4 MG INJ IV ×2 (06:28→23:09)
[2018-12-15] MEDS: FAMOTIDINE 20 MG TAB PO ×2 (08:54→21:09)
[2018-12-15] MEDS: HYDROCODONE/APAP (5/325) TAB PO ×2 (09:01→17:42)
[2018-12-15] MEDS: HYOSCYAMINE 0.125 MG SUBL TAB PO (13:12)
[2018-12-15] MEDS ORDERED: HYOSCYAMINE 0.125 MG SUBL TAB SL (13:30)
[2018-12-15] MEDS: METOCLOPRAMIDE 10 MG INJ IV (14:44)
[2018-12-15 22:37] LABS: MAGNESIUM 1.8 mg/dl (1.7-2.5)
[2018-12-15 22:37] LABS: POTASSIUM 3.7 mmol/L (3.5-5.1)
[2018-12-16] MEDS ORDERED: MAGNESIUM SULFATE 2 GM/50 ML 50 ML (00:51)
[2018-12-16] MEDS: MAGNESIUM SULFATE 2 GM/50 ML 50 ML IVPB (01:16)
[2018-12-16 05:24] LABS: ADD MAN DIFF? NO
[2018-12-16 05:30] LABS: WHITE BLOOD COUNT 7.1 10^3/ul (4.8-10.8)
[2018-12-16 05:30] LABS: BASOPHILS % 0.1 % (0.0-2.0); HEMATOCRIT 32.7 % (37.0-47.0); HEMOGLOBIN 10.6 g/dl (12.0-16.0); LYMPHOCYTES # 0.9 10^3/ul (0.8-2.9); LYMPHOCYTES % 13.2 % (15.0-51.0); MEAN CORPUSCULAR HEMOGLOBIN 26.8 pg (29.0-33.0); MEAN CORPUSCULAR HGB CONC 32.4 g/dl (32.0-37.0); MEAN CORPUSCULAR VOLUME 82.6 fl (82.0-101.0); MEAN PLATELET VOLUME 9.7 fl (7.4-10.4); MONOCYTE # 0.4 10^3/ul (0.3-0.9); MONOCYTES % 5.2 % (0.0-11.0); NEUTROPHIL # 5.8 10^3/ul (1.6-7.5); NEUTROPHILS % 81.2 % (39.0-77.0); PLATELET COUNT 249 10^3/UL (140-415); RED BLOOD COUNT 3.96 10^6/ul (4.20-5.40); RED CELL DISTRIBUTION WIDTH 12.4 % (11.5-14.5)
[2018-12-16 06:04] LABS: MAGNESIUM 2.6 mg/dl (1.7-2.5)
[2018-12-16 06:28] LABS: ALANINE AMINOTRANSFERASE 436 IU/L (13-69); ALBUMIN 3.9 g/dl (3.3-4.9); ALBUMIN/GLOBULIN RATIO 1.44; ALKALINE PHOSPHATASE 66 IU/L (42-121); ANION GAP 13 (5-13); ASPARTATE AMINO TRANSFERASE 206 IU/L (15-46); BILIRUBIN,INDIRECT 0.6 mg/dl (0-1.1); BILIRUBIN,TOTAL 0.6 mg/dl (0.2-1.3); BLOOD UREA NITROGEN 8 mg/dl (7-20); CALCIUM 8.6 mg/dl (8.4-10.2); CARBON DIOXIDE 27 mmol/L (21-31); CHLORIDE 103 mmol/L (97-110); CREATININE 0.62 mg/dl (0.44-1.00); Estimated GFR > 60 mL/min (>60); GLUCOSE 123 mg/dl (70-220); POTASSIUM 3.9 mmol/L (3.5-5.1); SODIUM 143 mmol/L (135-144); TOTAL PROTEIN 6.6 g/dl (6.1-8.1)
[2018-12-16] MEDS: OCTREOTIDE 100 MCG INJ SC ×2 (06:42→16:13)
[2018-12-16] MEDS: METHYLPREDNISOLONE 40 MG INJ IV (06:42)
[2018-12-16] MEDS: METOCLOPRAMIDE 10 MG INJ IV (06:53)
[2018-12-16] MEDS: morphine 2 MG INJ IV (06:54)
[2018-12-16] MEDS: FAMOTIDINE 20 MG TAB PO (08:53)
[2018-12-16 09:54] LABS: HAAIG REFLEX REFLEX FILED
[2018-12-16 10:50] LABS: HEPATITIS B SURFACE ANTIGEN NEGATIVE (NEGATIVE)
[2018-12-16 11:08] LABS: HEPATITIS B CORE ANTIBODY NEGATIVE (NEGATIVE); HEPATITIS C VIRAL ANTIBODY NEGATIVE (NEGATIVE)
[2018-12-16 13:24] LABS: ALANINE AMINOTRANSFERASE 448 IU/L (13-69); ALBUMIN 3.8 g/dl (3.3-4.9); ALKALINE PHOSPHATASE 66 IU/L (42-121); ASPARTATE AMINO TRANSFERASE 203 IU/L (15-46); BILIRUBIN,TOTAL 0.4 mg/dl (0.2-1.3); TOTAL PROTEIN 6.5 g/dl (6.1-8.1)
[2018-12-16 13:32] LABS: BILIRUBIN,INDIRECT 0.4 mg/dl (0-1.1)
[2018-12-16 14:55] LABS: LIPASE 58 U/L (23-300)
[2018-12-16] MEDS: HYOSCYAMINE 0.125 MG SUBL TAB PO (16:26)
[2018-12-16] MEDS: oxyCODONE 5 MG TAB PO (16:31)
== END 2018-12-16 16:30 | disposition home or self-care (01) | DRG 645 ==
LOC: E/R 20:02 → ICU 23:15
PROVIDERS: Family Medicine
DX: E16.1 Other hypoglycemia (principal); D37.8 Neoplasm of uncertain behavior of other specified digestive organs; I95.9 Hypotension, unspecified; E86.0 Dehydration; R10.13 Epigastric pain
CPT/HCPCS: 72170; 74181; 76705; 80048; 80053; 80061; 80076; 81025; 82962; 83036; 83690; 83735; 84132; 84443; 85025; 86704; 86709; 86803; 87081; 87340; 96374; 99285-25

== ENCOUNTER 2019-01-08 12:48 | Inpatient (IN) | payer OTHER ==
[2019-01-08] MEDS: DEXTROSE 50% 50 ML SYRINGE IV ×10 (14:22→23:12)
[2019-01-08] MEDS ORDERED: DEXTROSE 50% 50 ML SYRINGE (14:26)
[2019-01-08 14:44] LABS: ADD MAN DIFF? NO
[2019-01-08 14:45] LABS: BASOPHILS % 0.4 % (0.0-2.0); EOSINOPHILS % 0.1 % (0.0-7.0); HEMATOCRIT 36.5 % (37.0-47.0); HEMOGLOBIN 11.4 g/dl (12.0-16.0); LYMPHOCYTES # 1.3 10^3/ul (0.8-2.9); LYMPHOCYTES % 16.1 % (15.0-51.0); MEAN CORPUSCULAR HEMOGLOBIN 26.7 pg (29.0-33.0); MEAN CORPUSCULAR HGB CONC 31.2 g/dl (32.0-37.0); MEAN CORPUSCULAR VOLUME 85.5 fl (82.0-101.0); MEAN PLATELET VOLUME 9.3 fl (7.4-10.4); MONOCYTE # 0.6 10^3/ul (0.3-0.9); NEUTROPHIL # 6.1 10^3/ul (1.6-7.5); NEUTROPHILS % 76.2 % (39.0-77.0); PLATELET COUNT 220 10^3/UL (140-415); RED BLOOD COUNT 4.27 10^6/ul (4.20-5.40); RED CELL DISTRIBUTION WIDTH 13.3 % (11.5-14.5)
[2019-01-08 15:12] LABS: ALANINE AMINOTRANSFERASE 80 IU/L (13-69); ALBUMIN 5.2 g/dl (3.3-4.9); ALBUMIN/GLOBULIN RATIO 1.57; ALKALINE PHOSPHATASE 74 IU/L (42-121); ANION GAP 14 (5-13); ASPARTATE AMINO TRANSFERASE 82 IU/L (15-46); BILIRUBIN,INDIRECT 0.6 mg/dl (0-1.1); BILIRUBIN,TOTAL 0.6 mg/dl (0.2-1.3); BLOOD UREA NITROGEN 11 mg/dl (7-20); CALCIUM 9.4 mg/dl (8.4-10.2); CARBON DIOXIDE 21 mmol/L (21-31); CHLORIDE 105 mmol/L (97-110); CREATININE 0.59 mg/dl (0.44-1.00); Estimated GFR > 60 mL/min (>60); POTASSIUM 4.3 mmol/L (3.5-5.1); SODIUM 140 mmol/L (135-144); TOTAL PROTEIN 8.5 g/dl (6.1-8.1)
[2019-01-08 15:18] LABS: GLUCOSE 35 mg/dl (70-220)
[2019-01-08] MEDS: DEXTROSE 5%-0.9% NACL 1,000 ML IV (16:08)
[2019-01-08] MEDS: OCTREOTIDE 50 MCG INJ SC (16:46)
[2019-01-08] MEDS: DEXTROSE 10% 1,000 ML IV ×2 (16:50→22:36)
[2019-01-08] MEDS ORDERED: NACL 0.9% 3 ML SYG IV (17:00)
[2019-01-08] MEDS ORDERED: ONDANSETRON 4 MG INJ IV (17:00)
[2019-01-08] MEDS: ONDANSETRON 4 MG INJ IV ×2 (17:42→22:35)
[2019-01-08] MEDS: ACARBOSE 50 MG TAB PO (18:00)
[2019-01-08] MEDS: ACETAMINOPHEN 325 MG TAB PO (18:32)
[2019-01-08] MEDS: oxyCODONE 5 MG TAB PO ×2 (18:58→23:59)
[2019-01-08] MEDS: HYDROmorphONE 0.5 MG/0.5 ML SYG IV (22:35)
[2019-01-08] MEDS: OCTREOTIDE 100 MCG INJ SC (22:35)
[2019-01-09] MEDS: DEXTROSE 10% 1,000 ML IV ×2 (00:29→05:46)
[2019-01-09] MEDS: GLUCAGON 1 MG INJ IM ×2 (01:05→15:38)
[2019-01-09] MEDS: ACCU-CHEK XX (01:17)
[2019-01-09] MEDS: HYDROmorphONE 0.5 MG/0.5 ML SYG IV ×4 (04:27→21:13)
[2019-01-09] MEDS: DEXTROSE 50% 50 ML SYRINGE IV ×3 (04:27→11:17)
[2019-01-09 04:51] LABS: ADD MAN DIFF? NO
[2019-01-09 04:54] LABS: BASOPHILS % 0.3 % (0.0-2.0); EOSINOPHILS # 0.2 10^3/ul (0.0-0.5); EOSINOPHILS % 1.6 % (0.0-7.0); HEMATOCRIT 30.1 % (37.0-47.0); HEMOGLOBIN 9.4 g/dl (12.0-16.0); LYMPHOCYTES # 2.4 10^3/ul (0.8-2.9); LYMPHOCYTES % 23.9 % (15.0-51.0); MEAN CORPUSCULAR HEMOGLOBIN 26.9 pg (29.0-33.0); MEAN CORPUSCULAR HGB CONC 31.2 g/dl (32.0-37.0); MEAN PLATELET VOLUME 8.9 fl (7.4-10.4); MONOCYTE # 0.8 10^3/ul (0.3-0.9); MONOCYTES % 8.2 % (0.0-11.0); NEUTROPHIL # 6.6 10^3/ul (1.6-7.5); NEUTROPHILS % 65.8 % (39.0-77.0); PLATELET COUNT 159 10^3/UL (140-415); RED CELL DISTRIBUTION WIDTH 13.5 % (11.5-14.5)
[2019-01-09 04:54] LABS: WHITE BLOOD COUNT 10.1 10^3/ul (4.8-10.8)
[2019-01-09 05:08] LABS: HEMOGLOBIN A1C 5.1 % (0-5.9)
[2019-01-09 05:11] LABS: ALANINE AMINOTRANSFERASE 87 IU/L (13-69); ALBUMIN 3.7 g/dl (3.3-4.9); ALBUMIN/GLOBULIN RATIO 1.37; ALKALINE PHOSPHATASE 59 IU/L (42-121); ANION GAP 7 (5-13); ASPARTATE AMINO TRANSFERASE 76 IU/L (15-46); BILIRUBIN,INDIRECT 0.8 mg/dl (0-1.1); BILIRUBIN,TOTAL 0.8 mg/dl (0.2-1.3); BLOOD UREA NITROGEN 8 mg/dl (7-20); CALCIUM 8.2 mg/dl (8.4-10.2); CARBON DIOXIDE 26 mmol/L (21-31); CHLORIDE 105 mmol/L (97-110); CREATININE 0.63 mg/dl (0.44-1.00); Estimated GFR > 60 mL/min (>60); GLUCOSE 162 mg/dl (70-220); MAGNESIUM 1.8 mg/dl (1.7-2.5); PHOSPHORUS 3.8 mg/dl (2.5-4.9); POTASSIUM 3.8 mmol/L (3.5-5.1); SODIUM 138 mmol/L (135-144); TOTAL PROTEIN 6.4 g/dl (6.1-8.1)
[2019-01-09] MEDS: ONDANSETRON 4 MG INJ IV ×3 (05:45→21:13)
[2019-01-09] MEDS: OCTREOTIDE 100 MCG INJ SC ×3 (05:45→21:08)
[2019-01-09] MEDS: GLUCOSE GEL 15 GRAM TUBE BUCCAL (07:10)
[2019-01-09] MEDS: ACARBOSE 50 MG TAB PO ×3 (08:14→17:34)
[2019-01-09] MEDS: oxyCODONE 5 MG TAB PO ×3 (08:15→23:09)
[2019-01-09] MEDS: DEXTROSE 10%/0.45% NACL 1,000 ML IV ×3 (11:28→19:59)
[2019-01-09 13:16] LABS: FREE T4 (FREE THYROXINE) 0.91 ng/dl (0.79-2.35)
[2019-01-10] MEDS: ACCU-CHEK XX (02:00)
[2019-01-10] MEDS: DEXTROSE 10%/0.45% NACL 1,000 ML IV ×4 (03:13→22:07)
[2019-01-10] MEDS: ONDANSETRON 4 MG INJ IV ×2 (04:56→13:29)
[2019-01-10] MEDS: OCTREOTIDE 100 MCG INJ SC (04:56)
[2019-01-10] MEDS: HYDROmorphONE 0.5 MG/0.5 ML SYG IV ×3 (04:57→20:32)
[2019-01-10] MEDS: SOD CHLORIDE 0.9% 500 ML IV (06:20)
[2019-01-10] MEDS: oxyCODONE 5 MG TAB PO ×2 (08:08→15:20)
[2019-01-10] MEDS: ACARBOSE 50 MG TAB PO ×3 (08:10→17:57)
[2019-01-10] MEDS: IBUPROFEN 200 MG TAB PO (10:49)
[2019-01-10] MEDS ORDERED: DIAZOXIDE (50 MG/ML PO SYG) PO (14:00)
[2019-01-10] MEDS: GLUCOSE GEL 15 GRAM TUBE BUCCAL (15:08)
[2019-01-10] MEDS: OCTREOTIDE 50 MCG INJ SC (15:37)
[2019-01-10 15:47] LABS: C-PEPTIDE 2.58 ng/mL (0.80-3.85)
[2019-01-10] MEDS: GLUCOSE GEL 15 GRAM TUBE PO (16:30)
[2019-01-10 18:58] LABS: INSULIN 90.6 uIU/mL (2.0-19.6)
[2019-01-11] MEDS: HYDROmorphONE 0.5 MG/0.5 ML SYG IV ×4 (01:11→20:48)
[2019-01-11] MEDS: ONDANSETRON 4 MG INJ IV (01:16)
[2019-01-11] MEDS: ACCU-CHEK XX (02:00)
[2019-01-11] MEDS: ACARBOSE 50 MG TAB PO ×3 (08:53→17:35)
[2019-01-11] MEDS: METOCLOPRAMIDE 10 MG INJ IV (09:00)
[2019-01-11] MEDS: DEXTROSE 10%/0.45% NACL 1,000 ML IV ×2 (09:10→20:25)
[2019-01-11 09:53] LABS: ALANINE AMINOTRANSFERASE 186 IU/L (13-69); ALBUMIN 3.6 g/dl (3.3-4.9); ALBUMIN/GLOBULIN RATIO 1.33; ALKALINE PHOSPHATASE 67 IU/L (42-121); ANION GAP 7 (5-13); ASPARTATE AMINO TRANSFERASE 103 IU/L (15-46); BILIRUBIN,INDIRECT 0.4 mg/dl (0-1.1); BILIRUBIN,TOTAL 0.4 mg/dl (0.2-1.3); BLOOD UREA NITROGEN 2 mg/dl (7-20); CALCIUM 8.7 mg/dl (8.4-10.2); CARBON DIOXIDE 28 mmol/L (21-31); CHLORIDE 108 mmol/L (97-110); CREATININE 0.55 mg/dl (0.44-1.00); Estimated GFR > 60 mL/min (>60); GLUCOSE 56 mg/dl (70-220); POTASSIUM 3.5 mmol/L (3.5-5.1); SODIUM 143 mmol/L (135-144); TOTAL PROTEIN 6.3 g/dl (6.1-8.1)
[2019-01-11] MEDS ORDERED: ONDANSETRON 4 MG INJ IV (11:00)
[2019-01-11] MEDS: ONDANSETRON INJ 8 MG in SOD CHLORIDE 0.9% 50 ML IV ×2 (12:14→19:43)
[2019-01-11] MEDS: DEXTROSE 50% 50 ML SYRINGE IV (13:50)
[2019-01-11] MEDS: LORAZEPAM 2 MG INJ IV (18:40)
[2019-01-11] MEDS: METHYLPREDNISOLONE 40 MG INJ IV (20:01)
[2019-01-11] MEDS: GLUCOSE GEL 15 GRAM TUBE PO (20:40)
[2019-01-12] MEDS: HYDROmorphONE 0.5 MG/0.5 ML SYG IV ×3 (01:10→17:53)
[2019-01-12] MEDS: ACCU-CHEK XX (02:00)
[2019-01-12 05:55] LABS: ALANINE AMINOTRANSFERASE 219 IU/L (13-69); ALBUMIN 3.6 g/dl (3.3-4.9); ALBUMIN/GLOBULIN RATIO 1.28; ALKALINE PHOSPHATASE 76 IU/L (42-121); ANION GAP 9 (5-13); ASPARTATE AMINO TRANSFERASE 90 IU/L (15-46); BILIRUBIN,INDIRECT 0.4 mg/dl (0-1.1); BILIRUBIN,TOTAL 0.4 mg/dl (0.2-1.3); BLOOD UREA NITROGEN 5 mg/dl (7-20); CARBON DIOXIDE 25 mmol/L (21-31); CHLORIDE 105 mmol/L (97-110); CREATININE 0.52 mg/dl (0.44-1.00); Estimated GFR > 60 mL/min (>60); GLUCOSE 214 mg/dl (70-220); MAGNESIUM 1.8 mg/dl (1.7-2.5); POTASSIUM 4.2 mmol/L (3.5-5.1); SODIUM 139 mmol/L (135-144); TOTAL PROTEIN 6.4 g/dl (6.1-8.1)
[2019-01-12] MEDS: DEXTROSE 10%/0.45% NACL 1,000 ML IV (06:39)
[2019-01-12] MEDS: ACARBOSE 50 MG TAB PO ×3 (08:38→17:36)
[2019-01-12] MEDS: ONDANSETRON INJ 8 MG in SOD CHLORIDE 0.9% 50 ML IV (11:10)
[2019-01-12] MEDS ORDERED: ACETAMINOPHEN 325 MG TAB PO (13:00)
[2019-01-12] MEDS: PROMETHAZINE (1.25 MG/ML) 5 ML CUP PO (14:29)
[2019-01-12] MEDS ORDERED: ONDANSETRON 4 MG INJ IV (15:00)
[2019-01-12] MEDS: METOCLOPRAMIDE 10 MG INJ IV (15:21)
[2019-01-12] MEDS: SCOPOLAMINE 1.5 MG PATCH TRANSDERM (15:21)
[2019-01-12] MEDS: POLYETHYLENE GLYCOL 17 GM PACKET PO (15:22)
[2019-01-12] MEDS: SENNA/DOCUSATE NA (8.6MG/50MG) TAB PO (15:22)
[2019-01-12] MEDS: MAGNESIUM SULFATE 2 GM/50 ML 50 ML IVPB (16:20)
== END 2019-01-12 20:10 | disposition home or self-care (01) | DRG 645 ==
LOC: E/R 12:48 → ICU 16:53
PROVIDERS: Internal Medicine
DX: E16.1 Other hypoglycemia (principal); R74.0 Nonspecific elevation of levels of transaminase and lactic acid dehydrogenase [LDH]; R11.0 Nausea; R10.13 Epigastric pain; D37.8 Neoplasm of uncertain behavior of other specified digestive organs; Z90.411 Acquired partial absence of pancreas
CPT/HCPCS: 36415; 76705; 80053; 82962; 83036; 83525; 83735; 84100; 84439; 84443; 84681; 85025; 87081; 96372; 96374; 96376; 99285-25